=== PATIENT | female | born 1985 | race African-American/Black ===

== ENCOUNTER 2018-09-13 22:15 | Emergency (ER) | payer OTHER ==
[~2018-09-13] VITALS: Ht 175.3 cm; Wt 111.1 kg
[2018-09-13 22:41] VITALS: BP 132/82
[2018-09-14 00:22] LABS: Basophils # (auto) 0 uL; Basophils % (auto) 0.3 % (0.0-2.0); Eosinophils # (auto) 0 uL; Eosinophils % (auto) 0.1 % (0.0-7.0); Hematocrit 39.8 % (36.0-46.0); Hemoglobin 12.6 g/dL (12.2-16.2); Lymphocytes % (auto) 9.1 % (10.0-50.0); Mean Corpuscular Hemoglobin 21.9 pg (28.0-32.0); Mean Corpuscular Hgb Conc. 31.5 g/dL (32.0-36.0); Mean Corpuscular Volume 69.3 fL (80.0-100.0); Monocytes # (auto) 0.4 uL; Monocytes % (auto) 3.4 % (0.0-12.0); Neutrophils # (auto) 9.2 uL; Neutrophils % (auto) 87.1 % (37.0-80.0); Platelet Count (auto) 341 10^3/uL (140-450); Red Blood Cells 5.74 10^6/uL (4.0-5.20); Red Cell Distribution Width 16.4 % (11.8-14.3); White Blood Cell 10.5 10^3/uL (4.4-10.8)
[2018-09-14 00:40] LABS: Urine Amorphous Crystal FEW /hpf (None Seen); Urine Bacteria NONE SEEN /hpf (None Seen); Urine Blood Negative /uL (Negative); Urine Mucus FEW (None Seen); Urine Specific Gravity 1.027 (1.001-1.035); Urine WBC 2 /hpf (0 - 5)
[2018-09-14 00:41] LABS: Albumin 3.7 g/dL (3.4-5.0); BUN/Creatinine Ratio 8.8; Calcium 8.2 mg/dL (8.5-10.1); Potassium 3.5 mmol/L (3.5-5.1)
[2018-09-14 00:44] LABS: Bilirubin, Total 0.6 mg/dL (0.2-1.0); Total Protein 8.4 g/dL (6.4-8.2)
== END 2018-09-14 02:29 | disposition left against medical advice (07) ==
LOC: ER 22:15
DX: R11.2 Nausea with vomiting, unspecified (principal); Z53.21 Procedure and treatment not carried out due to patient leaving prior to being seen by health care provider
CPT/HCPCS: 36415; 80053; 81001; 83735; 84702; 85025